=== PATIENT | female | born 1985 | race Caucasian/White ===

== ENCOUNTER 2018-08-14 21:08 | Outpatient (CLI) | payer MEDICAID ==
[2018-08-14 22:30] LABS: ADD MAN DIFF? NO
[2018-08-14 22:32] LABS: ABNORMAL IP MESSAGE 1; BASOPHILS % 0.3 % (0.0-2.0); EOSINOPHILS # 0.1 10^3/ul (0.0-0.5); HEMATOCRIT 35.5 % (37.0-47.0); HEMOGLOBIN 12.4 g/dl (12.0-16.0); LYMPHOCYTES # 0.6 10^3/ul (0.8-2.9); MEAN CORPUSCULAR HEMOGLOBIN 33.8 pg (29.0-33.0); MEAN CORPUSCULAR HGB CONC 34.9 g/dl (32.0-37.0); MEAN CORPUSCULAR VOLUME 96.7 fl (82.0-101.0); MEAN PLATELET VOLUME 9.4 fl (7.4-10.4); MONOCYTE # 0.4 10^3/ul (0.3-0.9); NEUTROPHILS % 84.3 % (39.0-77.0); PLATELET COUNT 222 10^3/UL (140-415); RED BLOOD COUNT 3.67 10^6/ul (4.20-5.40); RED CELL DISTRIBUTION WIDTH 12.5 % (11.5-14.5)
[2018-08-14 22:32] LABS: WHITE BLOOD COUNT 7.1 10^3/ul (4.8-10.8)
[2018-08-14 22:43] LABS: POSITIVE DIFF @See below
[2018-08-14 22:51] LABS: ALANINE AMINOTRANSFERASE 23 IU/L (13-69); ALBUMIN/GLOBULIN RATIO 1.25; ALKALINE PHOSPHATASE 60 IU/L (42-121); ANION GAP 12 (5-13); ASPARTATE AMINO TRANSFERASE 25 IU/L (15-46); BILIRUBIN,INDIRECT 0.3 mg/dl (0-1.1); BILIRUBIN,TOTAL 0.3 mg/dl (0.2-1.3); BLOOD UREA NITROGEN 7 mg/dl (7-20); CALCIUM 9.5 mg/dl (8.4-10.2); CARBON DIOXIDE 25 mmol/L (21-31); CHLORIDE 103 mmol/L (97-110); CREATININE 0.47 mg/dl (0.44-1.00); Estimated GFR > 60 mL/min (>60); GLUCOSE 92 mg/dl (70-220); POTASSIUM 3.8 mmol/L (3.5-5.1); SODIUM 140 mmol/L (135-144); TOTAL PROTEIN 7.2 g/dl (6.1-8.1)
[2018-08-14 23:04] LABS: ADD UMIC NO; UR ASCORBIC ACID 20 mg/dL (NEGATIVE); UR BILIRUBIN (Dip) NEGATIVE (NEGATIVE); UR BLOOD (Dip) NEGATIVE (NEGATIVE); UR CLARITY CLEAR (CLEAR); UR COLOR YELLOW (YELLOW); UR GLUCOSE (Dip) 1+ mg/dL (NEGATIVE); UR KETONES (Dip) NEGATIVE (NEGATIVE); UR LEUKOCYTE ESTERASE (Dip) NEGATIVE Leu/ul (NEGATIVE); UR NITRITE (Dip) NEGATIVE (NEGATIVE); UR SPECIFIC GRAVITY (Dip) 1.011 (1.003-1.030); UR TOTAL PROTEIN (Dip) NEGATIVE (NEGATIVE); UR UROBILINOGEN (Dip) NEGATIVE (NEGATIVE)
[2018-08-14] MEDS: ACETAMINOPHEN 325 MG TAB PO (23:46)
== END 2018-08-15 00:33 | disposition home or self-care (01) ==
LOC: OBT 21:08 → L-D 21:09
DX: O98.512 Other viral diseases complicating pregnancy, second trimester (principal); Z3A.20 20 weeks gestation of pregnancy; J06.9 Acute upper respiratory infection, unspecified
CPT/HCPCS: 76815; 76817; 80053; 81003; 85025; 87086

== ENCOUNTER 2018-12-26 04:50 | Inpatient (IN) | payer MEDICAID ==
[2018-12-26] MEDS ORDERED: CARBOPROST 250 MCG INJ IM ×2 (05:30→17:00)
[2018-12-26] MEDS ORDERED: OXYTOCIN 30 UNITS/LR 500 ML IV ×2 (05:30→17:00)
[2018-12-26] MEDS: LACTATED RINGER'S 1,000 ML IV ×3 (05:44→21:12)
[2018-12-26 05:59] LABS: ADD MAN DIFF? NO
[2018-12-26 06:09] LABS: BASOPHILS % 0.2 % (0.0-2.0); EOSINOPHILS # 0.1 10^3/ul (0.0-0.5); EOSINOPHILS % 0.8 % (0.0-7.0); HEMATOCRIT 39.7 % (37.0-47.0); HEMOGLOBIN 13.8 g/dl (12.0-16.0); LYMPHOCYTES # 2.1 10^3/ul (0.8-2.9); LYMPHOCYTES % 22.5 % (15.0-51.0); MEAN CORPUSCULAR HEMOGLOBIN 33.1 pg (29.0-33.0); MEAN CORPUSCULAR HGB CONC 34.8 g/dl (32.0-37.0); MEAN CORPUSCULAR VOLUME 95.2 fl (82.0-101.0); MEAN PLATELET VOLUME 10.8 fl (7.4-10.4); MONOCYTE # 0.5 10^3/ul (0.3-0.9); MONOCYTES % 5.8 % (0.0-11.0); NEUTROPHIL # 6.4 10^3/ul (1.6-7.5); NEUTROPHILS % 70.2 % (39.0-77.0); PLATELET COUNT 167 10^3/UL (140-415); RED BLOOD COUNT 4.17 10^6/ul (4.20-5.40); RED CELL DISTRIBUTION WIDTH 13.3 % (11.5-14.5)
[2018-12-26 06:09] LABS: WHITE BLOOD COUNT 9.1 10^3/ul (4.8-10.8)
[2018-12-26 06:25] LABS: INR 0.92; PROTIME 12.5 Sec (11.9-14.9)
[2018-12-26 06:26] LABS: PARTIAL THROMBOPLASTIN TIME 28.1 Sec (23.0-35.0)
[2018-12-26 06:58] LABS: HEPATITIS B SURFACE ANTIGEN NEGATIVE (NEGATIVE)
[2018-12-26] MEDS ORDERED: ALBUTEROL 0.083% (NEB) 2.5 MG/3 ML AMP HHN (07:30)
[2018-12-26] MEDS ORDERED: NALOXONE (0.4 MG/ML) INJ IV ×2 (07:30→17:00)
[2018-12-26] MEDS ORDERED: DIPHENHYDRAMINE 50 MG INJ IV ×2 (07:30)
[2018-12-26] MEDS ORDERED: HYDROmorphONE 0.5 MG/0.5 ML SYG IV ×2 (07:30)
[2018-12-26] MEDS ORDERED: ONDANSETRON 4 MG INJ IV ×2 (07:30)
[2018-12-26] MEDS ORDERED: HYDROmorphONE 1 MG/5 ML IV SYRINGE IV ×3 (07:30)
[2018-12-26] MEDS ORDERED: FENTAnyl 50 MCG/ML VIAL IV ×3 (07:30)
[2018-12-26] MEDS ORDERED: KETOROLAC 30 MG INJ IV ×2 (07:30)
[2018-12-26] MEDS ORDERED: METOCLOPRAMIDE 10 MG INJ IV (07:30)
[2018-12-26] MEDS ORDERED: PHENYLephrine (100 MCG/ML) 10ML SYG (08:33)
[2018-12-26] MEDS ORDERED: EPHEDrine 25 MG/5 ML SYG (08:33)
[2018-12-26] MEDS ORDERED: OXYTOCIN 30 UNITS/LR 500 ML BAG IV (08:33)
[2018-12-26] MEDS ORDERED: morphine SULFATE/PF (10 MG/10 ML) INJ (08:33)
[2018-12-26] MEDS ORDERED: ONDANSETRON 4 MG INJ (08:49)
[2018-12-26] MEDS ORDERED: FENTAnyl 50 MCG/ML VIAL (09:33)
[2018-12-26] MEDS: MISOPROSTOL 200 MCG TAB PR (10:01)
[2018-12-26] MEDS: OXYTOCIN 30 UNITS/LR 500 ML IV ×3 (10:01→19:54)
[2018-12-26] MEDS: METHYLERGONOVINE 0.2 MG INJ IM (10:27)
[2018-12-26] MEDS: CEFAZOLIN 2 GM/50 ML (PMX) 50 ML IVPB (10:27)
[2018-12-26 14:58] LABS: RAPID PLASMA REAGIN NONREACTIVE (NR)
[2018-12-26] MEDS ORDERED: METHYLERGONOVINE 0.2 MG TAB PO (17:00)
[2018-12-26] MEDS ORDERED: MISOPROSTOL 200 MCG TAB PR (17:00)
[2018-12-26] MEDS ORDERED: METHYLERGONOVINE 0.2 MG INJ IM (17:00)
[2018-12-26] MEDS ORDERED: MAGNESIUM HYDROXIDE 30ML CUP PO (17:00)
[2018-12-26] MEDS: LANOLIN HPA 1 PKT TOP (18:37)
[2018-12-26] MEDS: DEXTROSE 5%-LR 1,000 ML IV (19:36)
[2018-12-26] MEDS: SENNA/DOCUSATE NA (8.6MG/50MG) TAB PO (21:53)
[2018-12-27] MEDS: DEXTROSE 5%-LR 1,000 ML IV ×2 (00:40→08:40)
[2018-12-27] MEDS: LACTATED RINGER'S 1,000 ML IV ×2 (05:37→13:12)
[2018-12-27] MEDS: IBUPROFEN 800 MG TAB PO ×3 (06:00→22:00)
[2018-12-27 06:52] LABS: ADD MAN DIFF? NO
[2018-12-27 07:01] LABS: BASOPHILS % 0.3 % (0.0-2.0); EOSINOPHILS # 0.1 10^3/ul (0.0-0.5); EOSINOPHILS % 1.1 % (0.0-7.0); HEMATOCRIT 36.4 % (37.0-47.0); HEMOGLOBIN 12.4 g/dl (12.0-16.0); LYMPHOCYTES # 1.6 10^3/ul (0.8-2.9); LYMPHOCYTES % 22.2 % (15.0-51.0); MEAN CORPUSCULAR HEMOGLOBIN 32.9 pg (29.0-33.0); MEAN CORPUSCULAR HGB CONC 34.1 g/dl (32.0-37.0); MEAN CORPUSCULAR VOLUME 96.6 fl (82.0-101.0); MEAN PLATELET VOLUME 10.5 fl (7.4-10.4); MONOCYTE # 0.5 10^3/ul (0.3-0.9); MONOCYTES % 6.5 % (0.0-11.0); NEUTROPHIL # 5.1 10^3/ul (1.6-7.5); NEUTROPHILS % 69.5 % (39.0-77.0); PLATELET COUNT 141 10^3/UL (140-415); RED BLOOD COUNT 3.77 10^6/ul (4.20-5.40); RED CELL DISTRIBUTION WIDTH 13.2 % (11.5-14.5)
[2018-12-27 07:01] LABS: WHITE BLOOD COUNT 7.4 10^3/ul (4.8-10.8)
[2018-12-27] MEDS: SENNA/DOCUSATE NA (8.6MG/50MG) TAB PO ×2 (10:32→20:43)
[2018-12-27] MEDS ORDERED: HYDROCODONE/APAP (5/325) TAB NGT (11:00)
[2018-12-27] MEDS: DIPHTH/TET/ACEL PERTUSS (ADULT) 0.5 ML VIAL IM* (11:02)
[2018-12-27] MEDS: HYDROCODONE/APAP (5/325) TAB GTB ×2 (14:00→22:00)
[2018-12-28] MEDS: IBUPROFEN 800 MG TAB PO ×3 (05:28→15:04)
[2018-12-28] MEDS: HYDROCODONE/APAP (5/325) TAB GTB ×2 (05:28→14:00)
[2018-12-28] MEDS: SENNA/DOCUSATE NA (8.6MG/50MG) TAB PO (11:45)
[2018-12-29] MEDS ORDERED: MEASLES,MUMPS,RUBELLA VACCINE INJ SC* (09:00)
[2018-12-29] MEDS ORDERED: DIPHTH/TET/ACEL PERTUSS (ADULT) 0.5 ML VIAL IM* (09:00)
== END 2018-12-28 18:37 | disposition home or self-care (01) | DRG 788 ==
LOC: L-D 04:50 → PP1 14:49
PROVIDERS: Obstetrics & Gynecology
PROC: 10D00Z1 Extraction of Products of Conception, Low, Open Approach (ICD-10-PCS; principal; 2018-12-26 07:30)
DX: O34.211 Maternal care for low transverse scar from previous cesarean delivery (principal); O94 Sequelae of complication of pregnancy, childbirth, and the puerperium; O99.214 Obesity complicating childbirth; E66.9 Obesity, unspecified; Z3A.39 39 weeks gestation of pregnancy; Z37.0 Single live birth
CPT/HCPCS: 85025; 85610; 85730; 86592; 86850; 86900; 86901; 87340; 99464